=== PATIENT | female | born 2000 | race African-American/Black ===

== ENCOUNTER 2018-09-06 11:09 | Emergency (ER) | payer OTHER ==
[~2018-09-06] VITALS: Ht 170.2 cm; Wt 67.6 kg
[2018-09-06 11:38] LABS: URINE BLOOD NEGATIVE (Negative); URINE CLARITY CLEAR; URINE COLOR YELLOW; URINE GLUCOSE-RANDOM* NEGATIVE (Negative); URINE KETONES NEGATIVE (Negative); URINE LEUKOCYTES-REFLEX NEGATIVE (Negative); URINE NITRITE-REFLEX NEGATIVE (Negative); URINE PROTEIN (DIPSTICK) NEGATIVE (Negative); URINE SPECIFIC GRAVITY >= 1.030 (1.005-1.035); URINE UROBILINOGEN 0.2 E.U./dl (0.2-1.0)
[2018-09-06 11:40] LABS: ICTOTEST (BILI CONFIRMATORY) Negative (Negative); URINE BILIRUBIN NEGATIVE (Negative)
[2018-09-06 12:07] LABS: HEMATOCRIT 35.5 % (37.0-47.0); HEMOGLOBIN 11.3 gm/dL (12.0-15.0); MCH 21.1 pg (26.0-34.0); MCHC 31.9 g/dL (28.0-37.0); PLATELET COUNT 271 thou/uL (150-400); RBC 5.38 mil/uL (4.20-5.00); RDW 19.2 % (10.5-14.5); WBC 5.4 thou/uL (4.0-11.0)
[2018-09-06 12:24] LABS: CALCIUM 9.7 mg/dL (8.5-10.1); CREATININE 0.9 mg/dL (0.6-1.0); POTASSIUM 4.1 mmol/L (3.5-5.1)
[2018-09-06 12:31] LABS: ALBUMIN 4.2 g/dL (3.4-5.0); DIRECT BILIRUBIN 0.1 mg/dL (<0.1-0.3); TOTAL BILIRUBIN 0.6 mg/dL (<0.1-1.0)
[2018-09-06 12:55] LABS: ABSOLUTE NEUTROPHILS 2.3 thou/uL (1.4-8.2); ANISOCYTOSIS 1+; MICROCYTES 2+; PLATELET ESTIMATE NORMAL
[2018-09-06 13:04] VITALS: BP 117/85
[2018-09-06] MEDS ORDERED: POTASSIUM20 PO (13:08)
[2018-09-06] MEDS ORDERED: LIDOCAINE40 MG/1 ML PO (13:08)
[2018-09-06] MEDS ORDERED: CARAFATE 1 GM TA1 G1 PO (13:08)
[2018-09-06] MEDS ORDERED: DIPHENHIST12.5 MG/5 PO (13:08)
== END 2018-09-06 13:54 | disposition home or self-care (01) ==
LOC: ER 11:09
PROVIDERS: Emergency Medicine
DX: K59.00 Constipation, unspecified (principal); J45.909 Unspecified asthma, uncomplicated; Z88.0 Allergy status to penicillin; Z91.018 Allergy to other foods

== ENCOUNTER 2019-05-15 17:53 | Emergency (ER) | payer OTHER ==
[~2019-05-15] VITALS: Ht 167.6 cm; Wt 73.0 kg
[~2019-05-15 17:53] MED LIST: CARAFATE 1 GM TA1 G1 PO; DIPHENHIST12.5 MG/5 PO; LIDOCAINE40 MG/1 ML PO; POTASSIUM20 PO
[2019-05-15] MEDS ORDERED: MELATONIN3 M1 PO (19:15)
[2019-05-15 19:31] VITALS: BP 115/88
== END 2019-05-15 19:35 | disposition home or self-care (01) ==
LOC: ER 17:53
DX: G47.00 Insomnia, unspecified (principal); J45.909 Unspecified asthma, uncomplicated; Z91.013 Allergy to seafood; Z88.0 Allergy status to penicillin

== ENCOUNTER 2020-04-29 06:53 | Emergency (ER) | payer BC, OTHER ==
[~2020-04-29] VITALS: Ht 175.3 cm; Wt 77.1 kg
[~2020-04-29 06:53] MED LIST changes: +MELATONIN3 M1 PO
[2020-04-29 08:01] LABS: CALCIUM 10.1 mg/dL (8.5-10.1); CREATININE 0.9 mg/dL (0.6-1.0); POTASSIUM 3.3 mmol/L (3.5-5.1)
[2020-04-29 08:03] LABS: ABSOLUTE NEUTROPHILS 4.8 thou/uL (1.4-8.2); BASOPHILS 0.7 % (0.0-2.0); EOSINOPHILS 0.6 % (0.0-3.0); HEMATOCRIT 37.8 % (37.0-47.0); HEMOGLOBIN 12.1 gm/dL (12.0-15.0); LYMPHOCYTES 23.5 % (24.0-44.0); MCH 21.7 pg (26.0-34.0); MCV 67.9 fL (80.0-100.0); MONOCYTES 6.4 % (1.0-8.0); PLATELET COUNT 285 thou/uL (150-400); POLYS 68.8 % (36.0-66.0); RBC 5.56 mil/uL (4.20-5.00)
[2020-04-29 08:07] LABS: ALBUMIN 4.6 g/dL (3.4-5.0); TOTAL BILIRUBIN 1.7 mg/dL (0.2-1.0); TOTAL PROTEIN 8.8 g/dL (6.4-8.2)
[2020-04-29 08:18] LABS: URINE BLOOD 1+ (Negative); URINE CLARITY CLEAR; URINE COLOR YELLOW; URINE GLUCOSE-RANDOM* NEGATIVE (Negative); URINE KETONES 3+ (Negative); URINE LEUKOCYTES-REFLEX NEGATIVE (Negative); URINE NITRITE-REFLEX NEGATIVE (Negative); URINE PROTEIN (DIPSTICK) NEGATIVE (Negative); URINE SPECIFIC GRAVITY >= 1.030 (1.005-1.035)
[2020-04-29 08:29] LABS: ICTOTEST (BILI CONFIRMATORY) Negative (Negative); URINE BILIRUBIN NEGATIVE (Negative)
[2020-04-29] MEDS ORDERED: ZOFRAN ODT4 MG PO (09:35)
[2020-04-29 09:36] VITALS: BP 121/84
[2020-04-29 10:46] LABS: CASTS None Seen /LPF (None Seen); CELLULAR CASTS 0-3 Few /LPF (None Seen); CRYSTALS None Seen /LPF (None Seen); SQUAMOUS 4-10 Moderate /LPF (0-3)
[2020-04-29 10:47] LABS: BACTERIA-REFLEX 1-9 Few /HPF (None Seen); URINE RBC 0-2 Rare /HPF (0-2); URINE WBC-REFLEX 0-5 Rare /HPF (0-5)
[2020-04-29 13:42] LABS: ANISOCYTOSIS 1+; HYPOCHROMASIA 1+
[2020-04-29 13:43] LABS: MICROCYTES 1+
== END 2020-04-29 09:36 | disposition home or self-care (01) ==
LOC: ER 06:53
PROVIDERS: Emergency Medicine
DX: R11.2 Nausea with vomiting, unspecified (principal); J45.909 Unspecified asthma, uncomplicated; Z88.0 Allergy status to penicillin; Z91.013 Allergy to seafood